=== PATIENT | male | born 1975 ===

== ENCOUNTER 2024-03-13 13:00 | Inpatient (IN) | payer MEDICAID ==
[2024-03-13] MEDS ORDERED: Sennosides/Docusate Sodium 50-8.6 MG Tab PO PRN (13:35)
[2024-03-13] MEDS ORDERED: Temazepam 15 MG Cap PO PRN (13:35)
[2024-03-13] MEDS ORDERED: Magnesium Hydroxide 400 MG/5 ML Susp 30 ML Cup PO PRN (13:35)
[2024-03-13] MEDS ORDERED: Sodium Chloride 0.9% 10 ML Syringe FLUSH PRN (13:35)
[2024-03-13] MEDS ORDERED: Polyethylene Glycol 3350 Powder 17 GM Packet PO PRN (13:35)
[2024-03-13] MEDS ORDERED: Acetaminophen/oxyCODONE 325-5 MG Tab PO PRN (13:35)
[2024-03-13] MEDS ORDERED: Naloxone 2 MG/2 ML Syringe IVPUSH PRN (13:35)
[2024-03-13] MEDS ORDERED: Albuterol/Ipratropium 3.0-0.5 MG/3 ML Neb Soln NEB PRN (13:35)
[2024-03-13] MEDS ORDERED: Ondansetron 4 MG/2 ML SDV IVPUSH PRN (13:35)
[2024-03-13] MEDS ORDERED: HYDROmorphone 0.5 MG/0.5 ML Syringe IVPUSH PRN (13:35)
[2024-03-13] MEDS ORDERED: Acetaminophen 325 MG Tab PO PRN ×2 (13:35→13:45)
[2024-03-13] MEDS ORDERED: Cyclobenzaprine 10 MG Tab PO PRN (13:43)
[2024-03-13] MEDS ORDERED: traMADol 50 MG Tab PO PRN (13:44)
[2024-03-13] MEDS ORDERED: Metoprolol Tartrate 5 MG/5 ML SDV IVPUSH PRN (13:46)
[2024-03-13] MEDS ORDERED: hydrALAZINE 20 MG/ML SDV IVPUSH PRN (13:46)
[2024-03-13] MEDS ORDERED: Sodium Phosphate 60 MMOLE in Sodium Chloride 0.9% 250 ML IV PRN (13:56)
[2024-03-13] MEDS ORDERED: Dextrose 5%-0.45% NaCl 1,000 ML IV PRN (13:56)
[2024-03-13] MEDS ORDERED: 50% Dextrose in Water 50 ML Syringe IVPUSH PRN ×2 (13:56→18:18)
[2024-03-13 14:12] LABS: BASOPHILS PERCENT AUTO 0.1 % (0.0-1.0); EOSINOPHILS PERCENT AUTO 0.3 % (1.0-3.0); HEMATOCRIT 54.7 % (40.0-54.0); LYMPHOCYTES PERCENT AUTO 9.5 % (20.5-50.1); MEAN CORPUSCULAR HEMOGLOBIN 31.7 pg (27.0-34.0); MEAN CORPUSCULAR HGB CONC 32.9 g/dL (33.0-35.0); MEAN CORPUSCULAR VOLUME 96.3 fL (80-100); MONOCYTES PERCENT AUTO 9.4 % (2-8); NEUTROPHILS PERCENT AUTO 80.7 % (42.2-75.2); PLATELET COUNT,PLT 223 10^3/uL (150-450); RED BLOOD CELL COUNT 5.68 10^6/uL (4.6-6.2); WHITE BLOOD CELL COUNT,WBC 10.2 10^3/uL (5.0-10.0)
[2024-03-13] MEDS: Scopalamine 1mg/3day Transdermal Patch TOP ONE (14:15)
[2024-03-13] MEDS: Lactated Ringers 1,000 ML IV SCH (14:17)
[2024-03-13 14:19] LABS: APPEARANCE,URINE CLEAR (CLEAR); BILIRUBIN,URINE SMALL (NEGATIVE); COLOR,URINE YELLOW (YELLOW); GLUCOSE,URINE 500 (NEGATIVE); KETONES,URINE >=160 (NEGATIVE); LEUKOCYTE ESTERASE,URINE NEGATIVE (NEGATIVE); NITRITE,URINE NEGATIVE (NEGATIVE); OCCULT BLOOD,URINE TRACE-INTACT (NEGATIVE); PH,URINE 5.5 (5.0-9.0); PROTEIN,URINE 30 (NEGATIVE); UROBILINOGEN,URINE 0.2 mg/dL (0.2-1.0)
[2024-03-13] MEDS: Lactated Ringers 2,000 ML IV ONE (14:19)
[2024-03-13] MEDS: Potassium Chloride 20 MEQ in Premix Bag 1 BAG IV ONE (14:19)
[2024-03-13] MEDS: Potassium Chloride 10 MEQ Tab.ER PO ONE (14:19)
[2024-03-13 14:22] LABS: AMPHETAMINES,URINE NEGATIVE (NEGATIVE); BARBITURATES,URINE NEGATIVE (NEGATIVE); BENZODIAZEPINE,URINE NEGATIVE (NEGATIVE); MDMA (ECSTASY), URINE NEGATIVE (NEGATIVE); METHADONE,URINE NEGATIVE (NEGATIVE); METHAMPHETAMINES,URINE NEGATIVE (NEGATIVE); OPIATES,URINE NEGATIVE (NEGATIVE); OXYCODONE,URINE NEGATIVE (NEGATIVE); PHENCYCLIDINE,URINE NEGATIVE (NEGATIVE); TCA,URINE NEGATIVE (NEGATIVE)
[2024-03-13 14:32] LABS: BACTERIA,URINE RARE /HPF (0-FEW/HPF); EPITHELIAL CELLS,URINE RARE /HPF (NOT SEEN); RBC,URINE 0-5 /HPF (0-5); WBC,URINE NOT SEEN /HPF (0-5/HPF)
[2024-03-13 14:33] LABS: ANION GAP 25.5 mEq/L (7-13); CREATININE 1.39 mg/dL (0.70-1.30); EST CRCL DRUG DOSING (CG) 71.85 mL/min; HEMOGLOBIN A1C 7.7 % (<5.7); MAGNESIUM 2.2 mg/dL (1.8-2.4); PHOSPHORUS 4.5 mg/dL (2.6-4.7); POTASSIUM,K 5.5 mmol/L (3.5-5.1)
[2024-03-13] MEDS: Pantoprazole 40 MG Vial IVPUSH ONE (16:02)
[2024-03-13] MEDS: Lactated Ringers 1,000 ML IV ONE (16:12)
[2024-03-13 17:55] LABS: ANION GAP 25.7 mEq/L (7-13); CALCIUM 8.7 mg/dL (8.5-10.1); CREATININE 1.18 mg/dL (0.70-1.30); EST CRCL DRUG DOSING (CG) 84.64 mL/min
[2024-03-13 17:57] LABS: POTASSIUM,K 5.7 mmol/L (3.5-5.1)
[2024-03-13] MEDS ORDERED: Glucagon,Human Recombinant 1 MG Vial IM PRN (18:18)
[2024-03-13] MEDS: Dextrose 5%-0.9% NaCl 1,000 ML IV SCH (19:04)
[2024-03-13] MEDS: Insulin Glarg,Human.Rec.Analog 100 Unit/ML 10 ML Vial SUBCUT ONE (19:18)
[2024-03-13] MEDS: Sodium Chloride 0.9% 10 ML Syringe FLUSH SCH (20:18)
[2024-03-13] MEDS: Temazepam 15 MG Cap PO PRN (21:12)
[2024-03-13 22:29] LABS: ANION GAP 22.3 mEq/L (7-13); CALCIUM 8.3 mg/dL (8.5-10.1); CREATININE 1.05 mg/dL (0.70-1.30); EST CRCL DRUG DOSING (CG) 95.12 mL/min; POTASSIUM,K 4.3 mmol/L (3.5-5.1)
[2024-03-14] MEDS: LORazepam 1 MG Tab PO ONE (00:32)
[2024-03-14] MEDS: Insulin Glarg,Human.Rec.Analog 100 Unit/ML 10 ML Vial SUBCUT ONE (00:33)
[2024-03-14] MEDS: Pantoprazole 40 MG Tab.CR PO SCH (05:19)
[2024-03-14 06:48] LABS: BASOPHILS PERCENT AUTO 0.2 % (0.0-1.0); EOSINOPHILS PERCENT AUTO 2.9 % (1.0-3.0); HEMATOCRIT 44.1 % (40.0-54.0); HEMOGLOBIN 14.3 g/dL (14.0-18.0); LYMPHOCYTES PERCENT AUTO 25.4 % (20.5-50.1); MEAN CORPUSCULAR HEMOGLOBIN 31.2 pg (27.0-34.0); MEAN CORPUSCULAR HGB CONC 32.4 g/dL (33.0-35.0); MEAN CORPUSCULAR VOLUME 96.1 fL (80-100); MONOCYTES PERCENT AUTO 12.9 % (2-8); NEUTROPHILS PERCENT AUTO 58.6 % (42.2-75.2); PLATELET COUNT,PLT 162 10^3/uL (150-450); RED BLOOD CELL COUNT 4.59 10^6/uL (4.6-6.2); WHITE BLOOD CELL COUNT,WBC 5.6 10^3/uL (5.0-10.0)
[2024-03-14 07:18] LABS: ANION GAP 11.9 mEq/L (7-13); CALCIUM 7.7 mg/dL (8.5-10.1); CREATININE 0.89 mg/dL (0.70-1.30); EST CRCL DRUG DOSING (CG) 112.22 mL/min; POTASSIUM,K 3.9 mmol/L (3.5-5.1)
[2024-03-14 09:37] LABS: ANION GAP 10.8 mEq/L (7-13); CALCIUM 7.5 mg/dL (8.5-10.1); CREATININE 0.89 mg/dL (0.70-1.30); EST CRCL DRUG DOSING (CG) 112.22 mL/min; POTASSIUM,K 3.8 mmol/L (3.5-5.1)
[2024-03-14] MEDS: FLU (Fluarix Triv) TS24-25(6MOS UP)/PF 45 MCG/0.5 ML Syringe IM ONE (11:42)
[2024-03-14] MEDS: Insulin Lispro 100 Units/ML 3 ML Vial SUBCUT SCH (11:58)
[2024-03-14 13:39] LABS: ANION GAP 12.2 mEq/L (7-13); CALCIUM 7.9 mg/dL (8.5-10.1); CREATININE 0.75 mg/dL (0.70-1.30); EST CRCL DRUG DOSING (CG) 133.17 mL/min; POTASSIUM,K 4.2 mmol/L (3.5-5.1)
[2024-03-14] MEDS ORDERED: Insulin Glarg,Human.Rec.Analog 100 Unit/ML 10 ML Vial SUBCUT SCH (21:00)
== END 2024-03-14 13:28 | disposition home or self-care (01) | DRG 638 ==
LOC: DL.MS 13:06
PROVIDERS: ADMIT Internal Medicine; ATTEND Internal Medicine
DX: E11.10 Type 2 diabetes mellitus with ketoacidosis without coma (principal); N17.9 Acute kidney failure, unspecified; R65.10 Systemic inflammatory response syndrome (SIRS) of non-infectious origin without acute organ dysfunction; E11.65 Type 2 diabetes mellitus with hyperglycemia; E78.5 Hyperlipidemia, unspecified; E11.319 Type 2 diabetes mellitus with unspecified diabetic retinopathy without macular edema; E11.42 Type 2 diabetes mellitus with diabetic polyneuropathy; G47.00 Insomnia, unspecified; R61 Generalized hyperhidrosis; F12.90 Cannabis use, unspecified, uncomplicated; F10.90 Alcohol use, unspecified, uncomplicated; D72.829 Elevated white blood cell count, unspecified; E87.5 Hyperkalemia; R81 Glycosuria; E66.812 Obesity, class 2; R53.1 Weakness; Z68.32 Body mass index [BMI] 32.0-32.9, adult; Z79.899 Other long term (current) drug therapy; Z79.4 Long term (current) use of insulin
CPT/HCPCS: 36415; 80048; 80305-QW; 81001; 82550; 82947; 83036; 83605; 83735; 84100; 85025; 90656; 99223; 99239; A9270-GY; J1815-GY; J2470; J7042; J7120